=== PATIENT | female | born 1960 | race African-American/Black ===

== ENCOUNTER 2022-03-10 10:23 | Outpatient (CLI) | payer OTHER, SELFPAY ==
--- NOTE | ~2022-03-10 | XR_ITS ---
EXAMINATION: XR hip RT min 2V DATE: 03/10/2022 11:21 INDICATION: Right thigh pain. TECHNIQUE: 2 views of right hip were obtained. COMPARISON: None. FINDINGS: There is levoscoliosis of lumbar spine. No fracture. There is mild right hip osteoarthritis . IMPRESSION: 1. Mild right hip osteoarthritis. Reviewed, dictated and finalized at location B.
--- NOTE | ~2022-03-10 | XR_ITS ---
EXAMINATION: XR femur RT min 2V DATE: 03/10/2022 11:21 INDICATION: Right upper leg pain. TECHNIQUE: Overlapping proximal and distal, AP and lateral views of the right femur were obtained. COMPARISON: None FINDINGS: Alignment is normal. No fracture. Right hip joint space is normal with very small marginal osteophyt es about the femoral head. Heterotopic ossification along the posterior margin of the greater trochan ter. Small marginal osteophytes in all 3 compartments of the knee with relatively preserved joint spa siria on nonweightbearing imaging consistent with at least mild tricompartmental osteoarthritis. No rig ht knee joint effusion. Soft tissues are unremarkable. IMPRESSION: 1. No acute osseous abnormality. 2. At least mild osteoarthritis at the right hip and knee bladder which could be underestimated on no nweightbearing imaging. Reviewed, dictated and finalized at location A. IMPRESSION: 1. No acute osseous abnormality. 2. At least mild osteoarthritis at the right hip and knee bladder which could b e underestimated on nonweightbearing imaging.
--- NOTE | ~2022-03-10 | XR_ITS ---
EXAM: XR lumbar spine 6V w bending HISTORY: M54.50 - Low back pain, right leg pain. no injury COMPARISON: None available FINDINGS: Severe lumbar scoliosis. Multilevel disc space narrowing and marginal osteophytosis. Sever e multilevel facet sclerosis and hypertrophy. No definite pars defect. Vertebral body heights are shy ntained. IMPRESSION: Exam limited by severe scoliosis, within that constraint no definite dynamic listhesis. Severe multil evel facet arthropathy. Moderate multilevel degenerative disc disease. Reviewed, dictated and finalized at location K. IMPRESSION: Exam limited by severe scoliosis, within that constraint no definite dynamic li sthesis. Severe multilevel facet arthropathy. Moderate multilevel degenerative disc disease.
[2022-03-10 10:39] LABS: Basophils Absolute Auto 0.1 K/mm3 (0.0-0.1); Basophils Percent Auto 1.5 % (0.2-1.2); Eosinophils Absolute Auto 0.3 K/mm3 (0-0.3); Eosinophils Percent Auto 6.5 % (0-4.4); Hematocrit 41.6 % (37.0-47.0); Hemoglobin 12.8 g/dL (12.0-15.0); Immature Granulocyte Absolute 0.01 K/mm3 (0.00-0.031); Immature Granulocyte Percent A 0.2 % (0-0.5); Lymphocytes Absolute Auto 1.79 K/mm3 (0.9-3.2); Lymphocytes Percent Auto 44.5 % (18.3-44.2); Mean Corpuscular HGB Conc 30.8 g/dl (32-36); Mean Corpuscular Hemoglobin 24.2 pg (26-34); Mean Corpuscular Volume 78.6 fl (80-100); Mean Platelet Volume 9.8 fl (7.4-10.4); Monocytes Absolute Auto 0.6 K/mm3 (0.1-0.6); Monocytes Percent Auto 13.7 % (2.6-8.5); Neutrophils Absolute Auto 1.4 K/mm3 (1.3-6.7); Neutrophils Percent Auto 33.6 % (45.5-73.1); Platelet Count Result 218 k/mm3 (150-375); Red Blood Count 5.29 M/mm3 (4.2-5.4); Red Cell Distribution Width 16.1 % (11.5-14.5)
[2022-03-10 10:48] LABS: Alanine Aminotransferase 21 U/L (4-35); Albumin Level 4.3 g/dL (3.5-5.1); Alkaline Phosphatase 71 U/L (38-126); Anion Gap 5 mmol/L (8-16); Aspartate Amino Transferase 39 U/L (14-36); Bilirubin,Total 0.2 mg/dL (0.2-1.3); Blood Urea Nitrogen 9 mg/dL (7-17); Calcium 8.8 mg/dL (8.4-10.2); Carbon Dioxide 33 mmol/L (22-30); Chloride 102 mmol/L (98-107); Cholesterol 152 mg/dL (0-200); Estimated Glomerular Filt Rate > 60; Glucose 91 mg/dL (65-110); HDL Direct 39 mg/dL; Potassium 3.1 mmol/L (3.4-5.0); Sodium 140 mmol/L (137-145); Triglycerides 142 mg/dL (<150)
[2022-03-10 10:59] LABS: LDL Cholesterol Direct 59 mg/dL
== END 2022-03-10 10:24 | disposition home or self-care (01) ==
LOC: ANHLAB 10:27
PROVIDERS: PCP Family Medicine; Visit Provider Family Medicine
DX: Z13.220 Encounter for screening for lipoid disorders (principal); I10 Essential (primary) hypertension; K21.9 Gastro-esophageal reflux disease without esophagitis; M41.9 Scoliosis, unspecified; M17.11 Unilateral primary osteoarthritis, right knee; M16.11 Unilateral primary osteoarthritis, right hip
CPT/HCPCS: 36415; 72114; 73502; 73552; 80053; 80061; 84443; 85025

== ENCOUNTER 2022-04-29 14:00 | Outpatient (RCR) | payer OTHER, SELFPAY ==
--- NOTE | 2022-04-21 13:37 | PTOPEVAL ---
PHYSICAL THERAPY INITIAL EVALUATION. Thank you for referring Loida Loza to [facility].? The patient is scheduled to be seen for therapy?1x/week for 4 weeks. Please review, sign, date and return this plan of care OH. I agree with and certify that the following plan of care is medically necessary. Referring Physician Date Attending Provider: Abhi Ramos MD *PT Outpatient Evaluation Start: 04/21/22 Evaluation Information Diagnosis R thigh pain Onset ~2-3 months Additional Evaluation Detail Severe lumbar scoliosis Subjective Information Pt states she has been having Query Text:As Reported By Patient/ pain on the R thigh and Family sometimes the L. She states she has been to the emergency room multiple times because of this. She states the pain started in her knee. Pt states she is limited in her daily ability at baseline due to her history of back pain and asthma. She reports her leg pain is not a limiting factor, that she can work through the pain. 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 She states she is able to walk around the store and walk on the treadmill frequently. Pain Assessment Self Report Pain Assessment Right Thigh(s) Reported Pain Level 0 Greatest Pain Intensity 8 Lower Extremity Range of Motion General Lower Extremity Range of Motion WFL/Left,WFL/Right Lower Extremity Muscle Strength Testing Gross Lower Extremity Strength L hip flexion 4+/5 R hip flexion 4/5 L knee flexion/extension 4+/5 L knee flexion /extension 4/5 Ashish hip abduction 2/5 able to perform glute bridge Muscle Length Testing Two-Joint Hip Flexor Shortened Muscles Short (R) Iliopsoas,Short (R) Rectus Femoris,Short (L) Rectus Femoris Right Prone Hip Internal Rotator Length 30 Left Prone Hip Internal Rotator Length ( 30 Right Prone Hip External Rotator Length 60 Left Prone Hip External Rotator Length ( 60 Left Hamstring Length -10 Right Hamstring Length -10 Right Prone Knee Flexor Muscle Length ( 90 Left Prone Knee Flexor Muscle Length ( 90 Posture Standing Position Posture Evaluation View
--- NOTE | 2022-05-06 10:29 | PCPTNOTE ---
Patient did not show up for scheduled appointment this date. Called & was unable to leave a message.
--- NOTE | 2022-05-11 11:53 | PCPTNOTE ---
Attending Provider: Abhi Ramos MD Patient:Loida Loza Date of :1960 Patient called today and called all of her remaining appointments states it is too hard for her to make it to therapy. Patient?s initial visit was on 04/21/2022 12:30 and she had a total of 2 visits. Thank you for referring this patient to [facility]. Please review, sign, date and return this discharge summary OH. I have been updated about the patient's current status and I agree with discharge from the above service at this time. Referring Physician Date
== END 2022-05-12 10:15 | disposition home or self-care (01) ==
LOC: ANHPT 14:00
PROVIDERS: PCP Family Medicine; Visit Provider Family Medicine
DX: M79.651 Pain in right thigh (principal)
CPT/HCPCS: 97110; 97112; 97161

== ENCOUNTER 2022-05-07 09:22 | Outpatient (CLI) | payer OTHER, SELFPAY ==
--- NOTE | ~2022-05-07 | MM_ITS ---
EXAMINATION: MM screening lina BI w miguel HISTORY: Screening TECHNIQUE: Craniocaudal and mediolateral oblique 3-D tomosynthesis images were obtained and synthetic 2-D images were generated. CAD analysis was submitted and interpreted. COMPARISON: No prior mammogram is available for comparison at this institution. BREAST PARENCHYMAL COMPOSITION: There are scattered areas of fibroglandular density. FINDINGS: There is no evidence of suspicious mass, calcification, or architectural distortion to sugg est malignancy in either breast. There has been no suspicious interval change. IMPRESSION: 1. No mammographic evidence of malignancy. 2. Recommend routine screening mammography in one year. BI-RADS Category 1: Negative Reviewed, dictated and finalized at location A.
== END 2022-05-07 09:23 | disposition home or self-care (01) ==
PROVIDERS: PCP Family Medicine; Visit Provider Family Medicine
DX: Z12.31 Encounter for screening mammogram for malignant neoplasm of breast (principal)
CPT/HCPCS: 77063; 77067

== ENCOUNTER 2022-05-11 16:14 | Outpatient (CLI) | payer OTHER, SELFPAY ==
[2022-05-11 16:42] LABS: Potassium 2.9 mmol/L (3.4-5.0)
[2022-05-11 16:51] LABS: Iron 50 ug/dL (37-170)
[2022-05-11 17:01] LABS: Percent Iron Saturation 14 % (20-50)
== END 2022-05-11 16:15 | disposition home or self-care (01) ==
LOC: ANHLAB 16:16
PROVIDERS: PCP Family Medicine; Visit Provider Family Medicine
DX: R71.8 Other abnormality of red blood cells (principal); E87.6 Hypokalemia
CPT/HCPCS: 36415; 83540; 83550; 84132

== ENCOUNTER 2022-06-10 09:41 | Outpatient (CLI) | payer OTHER, SELFPAY ==
--- NOTE | ~2022-06-10 | MR_ITS ---
EXAMINATION: MR lumbar spine wo con DATE: 06/10/2022 10:39 INDICATION: Low back pain with radiculopathy. TECHNIQUE: Magnetic resonance imaging (MRI) of the lumbar spine was performed without intravenous con trast. Sequences included sagittal T2-weighted FSE, sagittal T2-weighted FS FSE, sagittal T1-weighted FSE, and axial T2-weighted FSE. COMPARISON: Lumbar spine radiographs 03/10/2022 FINDINGS: There is 64 degrees levoscoliosis of thoracolumbar spine. Vertebral body heights are normal . There is mildly decreased disc height at L2-L3, L3-L4, and L4-L5 and moderately decreased disc heig ht at L5-S1. The distal spinal cord signal intensity is normal. The conus medullaris is at L1-L2. The following disc levels are specifically discussed: L1-L2: The disc does not extend beyond the endplate margin. There is severe right and mild left facet joint osteoarthritis. There is mild right neural foraminal stenosis. There is no central canal steno sis. L2-L3: The disc is bulging. There is severe right and moderate left facet joint osteoarthritis. There is mild bilateral neural foraminal stenosis. There is mild central canal stenosis. L3-L4: The disc is bulging. There is severe bilateral facet joint osteoarthritis. There is mild bilat eral neural foraminal stenosis. There is mild central canal stenosis. L4-L5: The disc is bulging. There is mild right and severe left facet joint osteoarthritis. There is mild left neural foraminal stenosis. There is mild central canal stenosis. L5-S1: The disc is bulging. There is severe bilateral facet joint osteoarthritis. There is mild bilat eral neural foraminal stenosis. There is mild central canal stenosis. IMPRESSION: 1. Moderate lumbar spondylosis. 2. Thoracolumbar levoscoliosis. Reviewed, dictated and finalized at location A.
== END 2022-06-10 09:42 | disposition home or self-care (01) ==
PROVIDERS: PCP Family Medicine; Visit Provider Family Medicine
DX: M41.87 Other forms of scoliosis, lumbosacral region (principal); M47.896 Other spondylosis, lumbar region
CPT/HCPCS: 72148

== ENCOUNTER 2022-06-12 08:51 | Outpatient (CLI) | payer OTHER, SELFPAY ==
--- NOTE | 2022-06-15 16:51 | WPDPFTINT ---
PFT Procedure Performed PFT Procedure Performed Spirometry with Pre/Post Bronchodilator Plethysmography (Lung Vol) Diffusing Cap (DLCO) Flow Vol Loop PFT Interpretation This is a pulmonary function test with pre and post-bronchodilator spirometry, plethysmography and diffusing capacity. The test was performed and results interpreted in accordance with the 2019 and 2005 ATS/ERS Task Force guidelines respectively using the Global Lung Function Initiative-2012 reference equations. Patient demonstrated good effort and cooperation. Reproducibility criteria were met. The quality of the pre bronchodilator spirometry maneuver was Grade B and post bronchodilator spirometry maneuver was Grade B. Findings: Spirometry: The contour the inspiratory and expiratory flow tracing are normal. The pre bronchodilator FVC is 2.18 L, 89% predicted. The pre bronchodilator FEV1 is 1.48 L, 76% predicted. The pre bronchodilator FEV1: FVC ratio 68%. The post bronchodilator FVC is 2.18 L, representing no change. The post bronchodilator FEV1 is 1.91 L, representing a 29% increase. The post bronchodilator FEV1: FVC ratio is 88%. Plethysmography: The total lung capacity is 3.30 L, 79% predicted. The functional residual capacity is 1.18 L, 47% predicted. The residual volume is 0.95 L, 53% predicted. Diffusion capacity: The diffusing capacity unadjusted for hemoglobin and carboxyhemoglobin is 21.3, 104% predicted. The diffusing capacity adjusted for alveolar volume is 5.02, 111% predicted. Impression: There is a mild obstructive abnormality with a normal FEV 1 and with significant improvement after inhaling a single dose of albuterol. The total lung capacity is normal with a decreased functional residual capacity and residual volume. This is an abnormal but nonspecific lung volume pattern. The diffusing capacity is normal. There are no prior studies for comparison
== END 2022-06-12 08:52 | disposition home or self-care (01) ==
LOC: ANHPFT 08:52
PROVIDERS: PCP Family Medicine; Visit Provider Internal Medicine Pulmonary Disease
DX: J45.909 Unspecified asthma, uncomplicated (principal); R94.2 Abnormal results of pulmonary function studies
CPT/HCPCS: 94060; 94726; 94729

== ENCOUNTER 2022-07-17 11:00 | Outpatient (CLI) | payer OTHER, SELFPAY ==
--- NOTE | 2022-07-17 11:11 | ECHO_ITS ---
Patient Info Name: Cindy Loza Age: 61 years : 1960 Gender: Female Ht: 63 in Wt: 179 lbs BSA: 1.93 m2 HR: 65 bpm BP: 159 / 105 mmHg Technical Quality: Good Exam Date: 07/17/2022 11:37 AM Exam Location: [facility] Patient Status: Outpatient Admit Date: 07/17/2022 Staff Ordering Physician: Abhi Ramos MD Binder Cutter: Kuldip Perales RDCS, RT Attending Provider: Abhi Ramos MD Exam Type: CA echo doppler color flow Study Info Indications R06.02 - Shortness of breath Complete two-dimensional, color flow and Doppler transthoracic echocardiogram is performed. Strain analysis performed. Summary 1. Complete two-dimensional, color flow and Doppler transthoracic echocardiogram is performed. 2. Left ventricular chamber dimension is normal. 3. Left ventricular systolic function is normal, estimated at 60-65%. 4. The left ventricular diastolic function is grade I diastolic dysfunction. 5. E/e' 10 is mildly elevated. 6. Global longitudinal strain is abnormal at -15.7%. 7. There is mild mitral valve regurgitation. 8. There is trace tricuspid valve regurgitation. 9. No pulmonary hypertension, estimated pulmonary arterial systolic pressure is 34 mmHg. Left Ventricle E/e' 10 is mildly elevated. Global longitudinal strain is abnormal at -15.7%. Left ventricular chamber dimension is normal. Left ventricular systolic function is normal, estimated at 60-65%. The left ventricular diastolic function is grade I diastolic dysfunction. Right Ventricle Right ventricular systolic function is normal and with normal TAPSE 2.8 cm. Right ventricular chamber dimension is normal. Left Atria Left atrial chamber dimension is normal. Right Atria Right atrial chamber dimension is normal. Aortic Valve The aortic valve is trileaflet. There is no aortic valve stenosis. There is no aortic valve regurgitation. Pulmonic Valve There is no pulmonic regurgitation. Mitral Valve There is no mitral valve stenosis. There is mild mitral valve regurgitation. Tricuspid Valve There is trace tricuspid valve regurgitation. No pulmonary hypertension, estimated pulmonary arterial systolic pressure is 34 mmHg. Pericardium/Pleural There is no pericardial effusion. Inferior Vena Cava Normal inferior vena cava with >50% collapse upon inspiration consistent with normal right atrial pressure, 5 mmHg. Aorta The aortic root size at the sinus of Valsalva is normal. Left Ventricular Outflow Tract Name Value Normal LVOT 2D LVOT Diameter 2.0 cm LVOT Doppler LVOT Peak Gradient 4 mmHg LVOT Mean Gradient 2 mmHg LVOT VTI 23 cm LVOT VTI/AV VTI Ratio 0.7 LVOT Stroke Volume 70 ml LVOT CO 4.1 l/min LVOT CI 2.1 l/min/m2 Mitral Valve Name Value Normal
[2022-07-17 12:18] LABS: Anion Gap 10 mmol/L (8-16); Blood Urea Nitrogen 12 mg/dL (7-17); Calcium 9.6 mg/dL (8.4-10.2); Carbon Dioxide 30 mmol/L (22-30); Chloride 99 mmol/L (98-107); Estimated Glomerular Filt Rate > 60; Glucose 90 mg/dL (65-110); Potassium 3.8 mmol/L (3.4-5.0); Sodium 139 mmol/L (137-145)
[2022-07-17 12:21] LABS: Iron 42 ug/dL (37-170)
[2022-07-17 12:31] LABS: Percent Iron Saturation 11 % (20-50)
== END 2022-07-17 11:01 | disposition home or self-care (01) ==
PROVIDERS: PCP Family Medicine; Visit Provider Family Medicine
DX: R71.8 Other abnormality of red blood cells (principal); E87.6 Hypokalemia; J45.909 Unspecified asthma, uncomplicated; R06.00 Dyspnea, unspecified; I34.0 Nonrheumatic mitral (valve) insufficiency
CPT/HCPCS: 36415; 80048; 83540; 83550; 83735; 93306

== ENCOUNTER 2022-09-22 08:40 | Outpatient (CLI) | payer OTHER, SELFPAY ==
--- NOTE | 2022-09-22 11:30 | NEURO_ITS ---
Impression: # Complains of numbness of right lower extremity. # Normal nerve conduction study including F-waves. # Normal needle/EMG exam. # Clinical correlation recommended. Motor Nerve Conduction Lower Extremities Peroneal Nerve Conduction Velocity (m/sec) Terminal Latency (msec) Response Voltage(mV) Popliteal space-Ankle Ankle Extensor Dig Brevis Popliteal space Ankle Right 52 3.6 4 5 Left 47 3.8 2 3 Tibial Nerve Conduction Velocity (m/sec) Terminal Latency (msec) Response Voltage(mV) Popliteal space-Ankle Ankle-Extensor Dig Brevis Popliteal space Ankle Right 45 3.9 2 4 Left 45 4.0 2 4 F-waves Peroneal Nerve (ms) Tibial Nerve (ms) Right 49.5 50.8 Left 49.5 50.2 Sensory Nerve Conduction Lower Extremities Sural Nerve Stimulation Terminal Latency (msec) Ankle Response Voltage (uV) Ankle Response Velocity (m/sec) Right 3.8 10 42 Left 3.9 5 41 Superficial Peroneal Nerve Stimulation Terminal Latency (msec) Ankle Response Voltage (uV) Ankle Response Velocity (m/sec) Right 3.7 5 43 Left 3.7 7 43 Left Right Muscles Examined Fibrillation Fasciculation Scarcity Voltage Duration Left Right Left Right Left Right Left Right Left Right X X Ant Tibialis X X Gastroc X X Fibularis Long X X Flex Dig Long X X Ext Dig Brev Abd Hallucis X X Quadriceps Paraspinals MTDD
== END 2022-09-22 08:41 | disposition home or self-care (01) ==
PROVIDERS: PCP Family Medicine; Visit Provider Family Medicine
DX: M54.10 Radiculopathy, site unspecified (principal)
CPT/HCPCS: 95886; 95910

== ENCOUNTER 2022-11-20 07:21 | Outpatient (CLI) | payer OTHER, SELFPAY ==
--- NOTE | ~2022-11-20 | CT_ITS ---
CT Abdomen and Pelvis with contrast. History: Abdominal pain. Spiral CT of the abdomen and pelvis was performed after the administration of intravenous contrast. 1 00 cc of Omnipaque 350 was administered intravenously without complication. Dose reduction technique was used on this scan by utilizing automated exposure control and iterative reconstruction technique. The dose-length product (DLP) was 428.37 mGy-cm. Findings: Scans through the lung bases demonstrate mild atelectatic change. The liver, spleen, pancreas, adrenals and kidneys are within normal limits. There is focal calcificat ion of the gallbladder wall. No evidence of aortic aneurysm. No lymphadenopathy is seen. There is no evidence of bowel obstruction. There is no evidence to suggest acute appendicitis or dive rticulitis. Moderate sized fat-containing superior ventral hernia noted (axial image 60 for example). Images through the pelvis were performed. Urinary bladder unremarkable. There is fluid distention the endometrial cavity measures up to 2.3 cm in diameter. No ascites is seen. Impression: Moderate size ventral fat-containing hernia, as detailed above. Fluid distention of the endometrial cavity. This is abnormal given patient age. Gynecologic consultat ion/follow-up advised, along with pelvic ultrasound and/or other evaluation of the uterus. Reviewed, dictated and finalized at location M. K AND CASE MAKER Impression: Moderate size ventral fat-containing hernia, as detailed above. Fluid distention of the endometrial cavity. This is abnormal given patient age. Gynecologic consultation/follow-up advised, along with pelvic ultrasound and/o r other evaluation of the uterus.
[2022-11-20 08:26] LABS: Estimated Glomerular Filt Rate > 60
== END 2022-11-20 07:22 | disposition home or self-care (01) ==
PROVIDERS: PCP Family Medicine; Visit Provider Family Medicine
DX: R10.84 Generalized abdominal pain (principal); K43.9 Ventral hernia without obstruction or gangrene
CPT/HCPCS: 74177; Q9967

== ENCOUNTER 2023-01-28 12:36 | Outpatient (CLI) | payer OTHER, SELFPAY ==
--- NOTE | ~2023-01-28 | US_ITS ---
EXAMINATION: US pelvic complete w TV DATE: 01/28/2023 14:11 INDICATION: Noninflammatory disorder of uterus, unspecified. TECHNIQUE: Multiple transabdominal and transvaginal sonographic images of the pelvis were obtained. COMPARISON: CT abdomen and pelvis 11/20/2022 FINDINGS: TRANSABDOMINAL ULTRASOUND: The uterus measures 6.1 x 5.7 x 6.5 cm. There is no free fluid in the pelvis. TRANSVAGINAL ULTRASOUND: The endometrial complex measures 19 mm in thickness. There is a 2.7 cm intramural fibroid. The right ovary measures 2.7 x 1.9 x 1.9 cm. The left ovary measures 1.9 x 0.9 x 0.9 cm. There is normal vascul ar flow in the ovaries. IMPRESSION: 1. Thickened endometrial complex. The differential diagnosis includes endometrial hyperplasia, polyp, and carcinoma. Biopsy is recommended. 2. Uterine fibroid. Reviewed, dictated and finalized at location A. CANDLE DIPPER IMPRESSION: 1. Thickened endometrial complex. The differential diagnosis includes endometri al hyperplasia, polyp, and carcinoma. Biopsy is recommended. 2. Uterine fibroid.
[2023-01-28 14:29] LABS: Basophils Percent Auto 0.8 % (0.2-1.2); Eosinophils Absolute Auto 0.2 K/mm3 (0-0.3); Eosinophils Percent Auto 4.3 % (0-4.4); Hematocrit 39.4 % (37.0-47.0); Hemoglobin 12.6 g/dL (12.0-15.0); Immature Granulocyte Absolute 0.01 K/mm3 (0.00-0.031); Immature Granulocyte Percent A 0.3 % (0-0.5); Lymphocytes Absolute Auto 1.51 K/mm3 (0.9-3.2); Lymphocytes Percent Auto 37.8 % (18.3-44.2); Mean Corpuscular Volume 78.3 fl (80-100); Mean Platelet Volume 10.3 fl (7.4-10.4); Monocytes Absolute Auto 0.4 K/mm3 (0.1-0.6); Monocytes Percent Auto 9.8 % (2.6-8.5); Neutrophils Absolute Auto 1.9 K/mm3 (1.3-6.7); Platelet Count Result 218 k/mm3 (150-375); Red Blood Count 5.03 M/mm3 (4.2-5.4); Red Cell Distribution Width 15.9 % (11.5-14.5)
[2023-01-28 14:44] LABS: Alanine Aminotransferase 23 U/L (6-35); Albumin Level 4.1 g/dL (3.5-5.1); Alkaline Phosphatase 87 U/L (38-126); Anion Gap 5 mmol/L (8-16); Aspartate Amino Transferase 37 U/L (14-36); Bilirubin,Total 0.4 mg/dL (0.2-1.3); Blood Urea Nitrogen 15 mg/dL (7-17); Calcium 8.9 mg/dL (8.4-10.2); Carbon Dioxide 31 mmol/L (22-30); Chloride 103 mmol/L (98-107); Cholesterol 137 mg/dL (0-200); Estimated Glomerular Filt Rate > 60; Glucose 91 mg/dL (65-110); HDL Direct 41 mg/dL; Potassium 3.4 mmol/L (3.4-5.0); Sodium 139 mmol/L (137-145); Triglycerides 77 mg/dL (<150)
[2023-01-28 14:47] LABS: Iron 37 ug/dL (37-170)
[2023-01-28 14:55] LABS: LDL Cholesterol Direct 65 mg/dL
[2023-01-28 15:01] LABS: Percent Iron Saturation 11 % (20-50)
== END 2023-01-28 12:37 | disposition home or self-care (01) ==
LOC: ANHIMG 12:38
PROVIDERS: Nurse Practitioner Family; PCP Family Medicine; Visit Provider Family Medicine
DX: N85.9 Noninflammatory disorder of uterus, unspecified (principal); Z13.0 Encounter for screening for diseases of the blood and blood-forming organs and certain disorders involving the immune mechanism; E87.6 Hypokalemia; K21.9 Gastro-esophageal reflux disease without esophagitis; R71.8 Other abnormality of red blood cells; Z13.220 Encounter for screening for lipoid disorders; I10 Essential (primary) hypertension; D25.9 Leiomyoma of uterus, unspecified
CPT/HCPCS: 36415; 76830; 76856; 80048; 80061; 80076; 83540; 83550; 84443; 85025; 85660

== ENCOUNTER 2023-04-23 08:38 | Outpatient (CLI) | payer OTHER, SELFPAY | END 2023-04-23 08:39 | disposition home or self-care (01) | LOC: ANHLAB 08:40 | PROVIDERS: PCP Family Medicine; Visit Provider Physician Assistant Medical | DX: Z13.0 Encounter for screening for diseases of the blood and blood-forming organs and certain disorders involving the immune mechanism (principal) | CPT/HCPCS: 36415; 85660 ==

== ENCOUNTER 2024-03-13 11:41 | Outpatient (CLI) | payer OTHER, SELFPAY ==
[2024-03-13 12:58] LABS: Anion Gap 3 mmol/L (4-12); Blood Urea Nitrogen 13 mg/dL (7-17); Calcium 9.4 mg/dL (8.4-10.2); Carbon Dioxide 33 mmol/L (22-30); Chloride 102 mmol/L (98-107); Estimated Glomerular Filt Rate > 60; Glucose 97 mg/dL (65-110); Magnesium 2.2 mg/dL (1.6-2.3); Potassium 2.9 mmol/L (3.4-5.0); Sodium 138 mmol/L (137-145)
== END 2024-03-13 11:42 | disposition home or self-care (01) ==
LOC: ANHLAB 11:44
PROVIDERS: PCP Family Medicine; Visit Provider Family Medicine
DX: R94.4 Abnormal results of kidney function studies (principal); E87.6 Hypokalemia
CPT/HCPCS: 36415; 80048; 83735

== ENCOUNTER 2024-11-02 11:31 | Outpatient (CLI) | payer MEDICARE, MEDICAID, SELFPAY ==
[2024-11-02 12:08] LABS: Basophils Percent Auto 0.8 % (0.2-1.2); Eosinophils Absolute Auto 0.1 K/mm3 (0-0.3); Eosinophils Percent Auto 3.6 % (0-4.4); Hematocrit 39.2 % (37.0-47.0); Hemoglobin 12.6 g/dL (12.0-15.0); Lymphocytes Absolute Auto 1.32 K/mm3 (0.9-3.2); Lymphocytes Percent Auto 33.8 % (18.3-44.2); Mean Corpuscular HGB Conc 32.1 g/dl (32-36); Mean Corpuscular Volume 77.9 fl (80-100); Mean Platelet Volume 10.5 fl (7.4-10.4); Monocytes Absolute Auto 0.5 K/mm3 (0.1-0.6); Monocytes Percent Auto 11.5 % (2.6-8.5); Neutrophils Percent Auto 50.3 % (45.5-73.1); Platelet Count Result 223 k/mm3 (150-375); Red Blood Count 5.03 M/mm3 (4.2-5.4); Red Cell Distribution Width 15.1 % (11.5-14.5); White Blood Count 3.9 K/mm3 (4.5-10.0)
[2024-11-02 12:23] LABS: Alanine Aminotransferase 20 U/L (6-35); Albumin Level 4.3 g/dL (3.5-5.1); Alkaline Phosphatase 89 U/L (38-126); Anion Gap 3 mmol/L (4-12); Aspartate Amino Transferase 41 U/L (14-36); Bilirubin,Total 0.6 mg/dL (0.2-1.3); Blood Urea Nitrogen 12 mg/dL (7-17); Calcium 9.2 mg/dL (8.4-10.2); Carbon Dioxide 29 mmol/L (22-30); Chloride 106 mmol/L (98-107); Estimated Glomerular Filt Rate > 60; Glucose 89 mg/dL (65-110); Potassium 3.5 mmol/L (3.4-5.0); Sodium 138 mmol/L (137-145)
[2024-11-02 12:47] LABS: Iron 124 ug/dL (37-170)
[2024-11-02 12:57] LABS: Percent Iron Saturation 34 % (20-50)
== END 2024-11-02 11:32 | disposition home or self-care (01) ==
PROVIDERS: PCP Family Medicine; Visit Provider Family Medicine
DX: K21.9 Gastro-esophageal reflux disease without esophagitis (principal); R71.8 Other abnormality of red blood cells; I10 Essential (primary) hypertension
CPT/HCPCS: 36415; 80048; 80076; 82607; 82728; 83540; 83550; 84443; 85025

== ENCOUNTER 2025-04-23 10:11 | Outpatient (CLI) | payer MEDICARE, MEDICAID, SELFPAY ==
--- NOTE | ~2025-04-23 | US_ITS ---
EXAMINATION:US venous doppler LE BI INDICATION:Localized edema TECHNIQUE: Multiple grayscale, color flow and Doppler images of the right and left lower extremity de ep venous systems were obtained and reviewed. COMPARISON:No prior studies for comparison. FINDINGS: The common femoral, superficial femoral and popliteal veins demonstrate normal respiratory variation, augmentation and compressibility. Color flow is also seen within the posterior tibial, pe roneal, greater saphenous and profunda veins. IMPRESSION: 1: No lower extremity deep venous thrombosis. Reviewed, dictated and finalized at location A.
--- OUTSIDE RECORDS SUMMARY | 2025-04-23 10:53 | XMS_ITS | Clinical Summary ---
Author Organization [facility] Address [address] [place] [address] Care Team Providers Care Crm Dynamics Developer Name Role Phone Abhi Ramos MD Primary Care Provider [phone] Source Comments [facility],non-owned Affiliates and Associated Physician Practices is amultiple site organization consisting of ambulatory clinics and hospital sitesin [place], [place], [place] and [place]. This disclosure is being madepursuant to the Care Everywhere program and may not contain all information available regarding this patient. 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 Torrey Michele MD 11/24/2024 11:12 AM Medications * Be aware that medications may not be up to date on this document. Alwaysverify current medications with the patient. aspirin EC (Ecotrin) 81 MG tablet Take 1 (one) tablet by mouth once daily 1 Active losartan-hydro CHLOROthiazide (Hyzaar) 100-25 MG tablet Take 1 (one) tablet by mouth once daily 1 Active furosemide (Lasix) 20 MG tablet Take 10 mg by mouth once daily 2 Active ferrous sulfate 325 (65 FE) MG tablet Take 1 (one) tablet by mouth once daily Active butalbital-asp irin-caffeine (Fiorinal) 50-325-40 MG capsule Take 1 (one) capsule by mouth every 6 hours as needed for Headache Active potassium chloride ER (Klor-Con M) 10 MEQ tablet Take 1 (one) tablet by mouth 2 times daily Active pravastatin (Pravachol) 40 MG tablet Take 1 (one) tablet by mouth at bedtime Active albuterol HFA (Proventil; Ventolin; Proair) 108 (90 Base) MCG/ACT inhaler Inhale 2 (two) puffs by mouth every 6 hours as needed Active famotidine (Pepcid) 20 MG tablet Take 1 (one) tablet by mouth 2 times daily as needed for Heartburn Active acetaminophen (Tylenol) 500 MG tablet Take 2 (two) tablets by mouth every 6 hours as needed for Fever or Pain Maximum allowable Acetaminophen amount = 4 Grams (4000 mg) / 24 hours. Active triamcinolone acetonide (Kenalog) 0.1 % cream Apply to affected area 3 times daily Active ketorolac (Toradol) 10 MG tablet Take 1 (one) tablet by mouth every 8 hours as needed for Pain 15 tablet 3 Active orphenadrine citrate CR 12hr (Norflex) 100 MG tablet Take 1 (one) tablet by mouth every 12 hours as needed for Muscle Spasms 20 tablet 3 Active latanoprost (Xalatan) 0.005 % ophthalmic solution Instill 1 (one) drop into both eyes at bedtime 7.5 mL 4 5 Active brimonidine (Alphagan) 0.2 % ophthalmic solution Instill 1 (one) drop into both eyes 2 times daily 15 mL 4 5 Active Active Problems Problem Noted Date Diagnosed Date Primary open angle glaucoma (POAG) of both eyes, severe stage 11/24/2024 Overview (11/24/2024): Patient referred for signs of glaucoma damage even though there is no clear history of elevated intraocular pressure in the past that we can determine. The patient does report history of systemic steroid use during periods of asthma exacerbation lasting perhaps a week or 2 at a time but none recently. It is possible that the damage seen on visual field and OCT today are from prior episodes of significant pressure elevation with central corneal thickness near 500 m that could increase risk of damage even at physiologic pressures. Gonioscopy shows wide open angle to the scleral spur or ciliary body band 360 degrees both eyes with minimal trabecular meshwork pigmentation and no signs of pigment dispersion. Until we can obtain further information, we will placing the patient on 2 drug therapy Torrey Michele MD 11/24/2024 11:18 AM Pain of lower extremity 03/10/2023 Acute back pain 03/10/2023 Myalgia 03/10/2023 Social History Tobacco Use Types Packs/Day Years Used Date Smoking Tobacco: Never Assessed Comments Unknown Sex and Gender Information Value Date Recorded Sex Assigned at Not on file Legal Sex Female 1:06 PM CDT Gender Identity Not on file Sexual Orientation Not on file Last Filed Vital Signs Vital Sign Reading Time Taken Comments Blood Pressure 164/78 03/10/2023 2:48 PM CDT Pulse 64 03/10/2023 11:29 AM CDT Temperature 36.4 C (97.6 F) 03/10/2023 2:55 PM CDT Respiratory Rate 20 03/10/2023 11:29 AM CDT Oxygen Saturation 100% 03/10/2023 2:46 PM CDT Inhaled Oxygen Concentration - - Weight 80 kg (176 lb 5.9 oz) 03/10/2023 11:29 AM CDT Height 157.5 cm (5' 2) 03/10/2023 11:29 AM CDT Body Mass Index 32.26 03/10/2023 11:29 AM CDT Plan of Treatment Upcoming Encounters Date Type Department Care Team (Late st Contact Info) Description 05/17/2025 1:20 PM CDT Office Visit [facility] [place] [address] Torrey Michele MD [address] [place] [address] Health Maintenance Due Date Last Done Comments BONE DENSITY TESTING 1960 COLOGUARD (AGES 45-75) - COL ON CA SCREENING 1960 COLON MONITORING 1960 COLONOSCOPY - COLON CA SCREENING 1960 CT COLONOGRAPHY - COLON CA SCREENING 1960 Colorectal Cancer Screening 1960 FIT - COLON CA SCREENING 1960 FLEX SIG - COLON CA SCREENING 1960 PAP SMEAR 1960 HIV SCREENING 1974 HEPATITIS C SCREENING 08/05/1977 DTAP/TDAP/TD VACCINES (1 - Tdap) 1978 PNEUMOCOCCAL VACCINE 50+ (1 of 1 - PCV) 2009 ZOSTER VACCINE (1 of 2) 2009 MAMMOGRAM 10/19/2020 10/19/2018, 10/19/2018, 06/24/2015 COVID-19 VACCINE (1 - 2023-2 5 season) 2024 DEPRESSION SCREENING 11/22/2024 MEDICARE AWV CALENDAR YEAR 2024 INFLUENZA VACCINE (Season Ended) 2025 Respiratory Syncytial Virus (RSV) Vaccine Pt: or over 60 yrs (1 - 1-dose 75+ series) 2034 HEPATITIS B VACCINE Aged Out No longe r eligible based on patient's age to complete this topic HIB VACCINE Aged Out No longer eligi ble based on patient's age to complete this topic HPV VACCINE Aged Out No longer eligi ble based on patient's age to complete this topic MENINGOCOCCAL (Group B) VACCINE SHARED DECISION-MAKING Aged Out No longer eligible based on patient's age to complete this topic MENINGOCOCCAL GROUPS A/C/Y/W VACCINE Aged Out No longer eligible b ased on patient's age to complete this topic Insurance [place] [address] MEDICAID - [place] MEDICARE [facility] Care Teams Crm Dynamics Developer Relationship Specialty Start Date End Date Abhi Ramos MD [address] [place] [address] PCP - General Family Medicine 03/10/23
--- OUTSIDE RECORDS SUMMARY | 2025-04-23 10:53 | XMS_ITS | Referral Summary ---
Author Organization [facility] at the [facility] Office [place] Address [address] [place] [address] Care Team Providers Care Clinical Assoc Name Role Phone Abhi Ramos MD Primary Care Provider + [phone] Allergies Active Allergy Reactions Criticality Noted Date Comments Clindamycin Nausea only Low 02/06/2024 Latex Anaphylaxis High 02/06/2024 Medications cyclobenzaprine (FLEXERIL) 10 mg tablet Take 1 tablet (10 mg total) by mouth 3 (three) times a day as needed for muscle spasms 15 tablet 2 Active diclofenac sodium (VOLTAREN) 1 % gel Apply 4 g topically 4 (four) times a day 450 g 4 Active ibuprofen (ADVIL,MOTRIN) 600 mg tablet Take 1 tablet (600 mg total) by mouth every 6 (six) hours as needed for pain 30 tablet 4 Active acetaminophen (TYLENOL) 500 mg tablet Take 1 tablet (500 mg total) by mouth every 6 (six) hours as needed for pain 30 tablet 4 Active ketorolac (TORADOL) 10 mg tablet Take 1 tablet (10 mg total) by mouth every 6 (six) hours as needed for pain 20 tablet 4 Active Social History Tobacco Use Types Packs/Day Years Used Date Smoking Tobacco: Never Assessed Personal Safety Answer Date Recorded Have you ever been in or are you currently in a harmful physical or emotional relationship or is someone making you feel afraid or unsafe? 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 Gender Identity Female 03/03/2024 8:30 PM CDT Sexual Orientation Not on file Last Filed Vital Signs Vital Sign Reading Time Taken Comments Blood Pressure 132/76 03/26/2024 4:00 AM CDT Pulse 88 03/26/2024 4:00 AM CDT Temperature 36.9 C (98.5 F) 03/25/2024 4:44 PM CDT Respiratory Rate 21 03/26/2024 4:00 AM CDT Oxygen Saturation 100% 03/26/2024 4:00 AM CDT Inhaled Oxygen Concentration - - Weight 72.6 kg (160 lb) 03/25/2024 4:32 PM CDT Height 160 cm (5' 3) 03/25/2024 4:32 PM CDT Body Mass Index 28.34 03/25/2024 4:32 PM CDT Plan of Treatment Not on file Procedures Procedure Name Priority Date/Time Associated Diagnosis Comments SCREENING MAMMOGRAM BILATERAL W SUHAS Routine 10/19/2018 3:11 PM [employer]ILERS AND [employer] 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 A 1 year screening mammogram is recommended. The patient has been or will be contacted. The patient will be entered into a reminder system with a target due date of 1 year for her next screening exam. Electronically signed by: Dr. Gibran woods/trevor:10/19/2018 17:43:26 Diffusion Operator: Wendy Leal, [facility] letter sent: Normal Exam Reading location: [facility] BI-RADS: 1 Negative [EOD] Narrative 10/19/2018 5:43 PM BOILERS AND PRESSURE VESSELS INSPECTOR - MG BILATERAL DIGITAL SCREENING MAMMOGRAM 3D/2D WITH EXAGGERATED CC MEDIOLATERAL OBLIQUE CRANIOCAUDAL: 10/19/2018 The study was acquired using full field digital technology and interpreted from soft copy. 2D digital mammographic views, as well as 3D digital tomosynthesis were performed in the CC and MLO projections. CLINICAL: Routine mammogram. Denies any problems today. No personal history of breast cancer. No family history of breast cancer. COMPARISONS: Comparison is made to exams dated: 06/24/2015 mammogram and 03/08/2012 mammogram - [facility]. BREAST TISSUE: The tissue of both breasts is almost entirely fatty. FINDINGS: No significant masses, calcifications, or other findings are seen in either breast. There has been no significant interval change. Procedure Note Provider, MD Erasmo - 04/08/2021 - MG BILATERAL DIGITAL SCREENING MAMMOGRAM 3D/2D WITH EXAGGERATED CCMEDIOLATERAL OBLIQUE CRANIOCAUDAL: 10/19/2018 The study was acquired using full field digital technology and interpretedfrom soft copy. 2D digital mammographic views, as well as 3D digital tomosynthesis were performed in the CC and MLO projections. CLINICAL: Routine mammogram. Denies any problems today. No personalhistory of breast cancer. No family history of breast cancer. COMPARISONS: Comparison is made to exams dated: 06/24/2015 mammogram and 03/08/2012 mammogram - [facility]. BREAST TISSUE: The tissue of both breasts is almost entirely fatty. FINDINGS: No significant masses, calcifications, or other findings areseen in either breast. There has been no significant interval change. IMPRESSION: BI-RAD 1 NEGATIVE There is no mammographic evidence of malignancy. A 1 year screeningmammogram is recommended. The patient has been or will be contacted. The patient will be entered into a reminder system with a target due dateof 1 year for her next screening exam. Electronically signed by: Dr. Gibran woods/trevor:10/19/2018 17:43:26 Diffusion Operator: Wendy Leal, [facility] letter sent: Normal Exam Reading location: [facility] BI-RADS: 1 Negative [EOD] us Yrn Beal MD IMG MAMMO PROCEDURES Final Result from Last 3 Months or Most Recently Relevant to Health Maintenance Insurance [facility] Care Teams Clinical Assoc Relationship Specialty Start Date End Date Abhi Ramos MD [address] [place] [place] [address] PCP - General Family Medicine 02/06/24
--- OUTSIDE RECORDS SUMMARY | 2025-04-23 10:53 | XMS_ITS | Clinical Summary ---
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 Gender Identity Female 03/03/2024 8:30 PM CDT Sexual Orientation Not on file Obstetrics History Last Filed Vital Signs Vital Sign Reading [...] 03/25/2024 4:32 PM CDT Plan of Treatment Health Maintenance Due Date Last Done Comments Cervical Cancer Screening 1959 Colon Cancer Screening-Colonoscopy 1959 Depression Screening 1959 Fall Risk Assessment 1959 Hepatitis C Screening 1959 Osteoporosis Screening-Bone Density Scan 1959 DTaP/Tdap/Td Vaccine (1 - Tdap) 1970 Hepatitis B Screening 1977 Pneumococcal vaccine 65+ (1 of 2 - PCV) 1978 Zoster Vaccine (1 of 2) 2009 Breast Cancer Screening-Mammogram 10/19/2019 018, 06/24/2015 Well Visit 65+ 2024 Influenza Vaccine (Season Ended) 2025 Procedures Procedure Name Priority Date/Time Associated Diagnosis Comments SCREENING MAMMOGRAM BILATERAL W SUHAS Routine 10/19/2018 3:11 PM POLICE RESERVES COMMANDER from Last 3 Months or Most Recently Relevant to Health Maintenance Results * Screening Mammogram Bilateral W Suhas (10/19/2018 3:11 PM POLICE RESERVES COMMANDER) Anatomical Region Laterality Modality Breast Bilateral Mammography 10/19/2018 3:11 PM POLICE RESERVES COMMANDER Impressions 10/19/2018 5:43 PM POLICE RESERVES COMMANDER BI-RAD 1 NEGATIVE There is no mammographic evidence of malignancy. A 1 year screening mammogram is recommended. The patient has been or will be contacted. The patient will be entered into a reminder system with a target due date of 1 year for her next screening exam. Electronically signed by: Dr. Gibran Duque M.D. nh/penrad:10/19/2018 17:43:26 Title I Instructional Assistant: Wendy Leal, [facility] letter sent: Normal Exam Reading location: [facility] BI-RADS: 1 Negative [EOD] Narrative 10/19/2018 5:43 PM POLICE RESERVES COMMANDER - MG BILATERAL DIGITAL SCREENING MAMMOGRAM 3D/2D [...] dated: 06/24/2015 mammogram and 03/08/2012 mammogram - [facility]. BREAST TISSUE: The tissue of both [...] dated: 06/24/2015 mammogram and 03/08/2012 mammogram - [facility]. BREAST TISSUE: The tissue of both [...] screening exam. Electronically signed by: Dr. Gibran Duque M.D. in/penrad:10/19/2018 17:43:26 Title I Instructional Assistant: Wendy Leal, [facility] letter sent: Normal Exam Reading location: [facility] BI-RADS: 1 Negative [EOD] Yrn Beal MD IMG MAMMO PROCEDURES Final Result from Last 3 Months or Most Recently Relevant to Health Maintenance Insurance [facility] Care Teams Business Proposal Rep Relationship Specialty Start Date End Date Abhi Ramos MD [address] [place] [address] PCP - General Family Medicine 02/06/24
== END 2025-04-23 10:12 | disposition home or self-care (01) ==
PROVIDERS: PCP Family Medicine; Visit Provider Family Medicine
DX: R60.0 Localized edema (principal)
CPT/HCPCS: 93970